=== PATIENT | male | born 1980 | race Caucasian/White ===

== ENCOUNTER 2020-01-03 10:24 | Emergency (ER) | payer SELFPAY ==
[2020-01-03] VITALS (26 sets, daily range): BP systolic 112–135; BP diastolic 68–80; PULSE 57–98; RESP 10–26; TEMP 36.8–36.9; O2SAT 97–100
--- NOTE | 2020-01-03 10:30 | DI.CT_ITS ---
EXAM: CT CHEST/ABD/PEL W TECHNIQUE: CT examination of the chest, abdomen, and pelvis was performed with bolus infusion of 100 cc of Omnipaque 350. COMPARISON: No exams were available for comparison FINDINGS: There is no evidence of a thoracic vascular injury. The lungs are clear. No pneumothorax or pleural effusion. No mediastinal hematoma. No adenopathy in the chest. Tracheobronchial tree appears intact. The liver, spleen, and pancreas appear dorian except for incidental apparent right lobe hepatic katie ioma with characteristic peripheral nodular enhancement. Gallbladder and bile ducts are normal. Adrenals appear normal. There are nonobstructing right renal calculi. No evidence of renal injury. Renal cortex enhances symmetrically bilaterally.. No evidence of urinary tract injury or obstructio n. No abdominal or pelvic vascular injury seen. No abdominal or pelvic adenopathy. No significant abdomi nal wall hernia or hematoma. No evidence of bowel injury. IMPRESSION: No evidence of acute injury of the chest, abdomen, or pelvis. RADIATION DOSE DELIVERED: 1,234.08mGy.cm Total DLP DATA REPOSITORY: All CT scans at this facility are submitted to the National Radiology Data Registry (NRDR) Dose Index Registry (DIR) with the [employer] (ACR). RADIATION OPTIMIZATION: All CT scans at this facility use at least one of these dose optimization te chniques: automated exposure control; mA and/or kV adjustment per patient size (includes targeted exa ms where dose is matched to clinical indication); or iterative reconstruction.
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
[2020-01-03] MEDS: HYDROmorphone 2 MG/ML VIAL 1 MG IVP ×2 (10:39→11:30)
[2020-01-03 10:49] LABS: Abs Immature Grans 0.02 k/cumm (0.0-0.09); Absolute Basophil Count 0.03 k/cumm (0.0-0.2); Absolute Eosinophil Count 0.65 k/cumm (0.0-0.7); Absolute Monocyte Count 0.68 k/cumm (0.11-0.7); Absolute Neutrophil Count 5.97 k/cumm (1.2-6.7); Basophils % 0.3; Eosinophils % 6.9; HCT 42.4 % (40.0-50.0); HGB 13.9 g/dL (13.5-17.5); Immature Grans % 0.2 %; Lymphocytes % 22.2; Mean Corp. HGB Concentration 32.8 g/dL (32.0-36.0); Mean Corpuscular Hemoglobin 29.4 pg (27.0-33.0); Mean Corpuscular Volume 89.6 fL (80-95); Mean Platelet Volume 9.3 fL (8.0-11.0); Monocytes % 7.2; Neutrophils % 63.2; Platelet Count 403 x1000/uL (130-400); RBC 4.73 m/cumm (4.50-6.00); RBC Distribution Width 13.3 % (11.8-14.1); White Blood Cell Count 9.45 k/cumm (4.4-10.8)
[2020-01-03 11:05] LABS: INR 1.1 (0.9-1.1); PTT Activated 25.7 sec (21.0-31.4); Prothrombin Time 10.6 sec (9.3-11.0)
[2020-01-03 11:13] LABS: ALT 25 U/L (16-63); AST 18 U/L (15-37); Albumin 3.7 g/dL (3.4-5.0); Alkaline Phosphatase 94 U/L (46-116); Anion Gap 7.7 mmol/L (3-11); BUN 10 mg/dL (7-18); Bilirubin, Total 0.2 mg/dL (0.2-1.0); CO2 26.3 mmol/L (21.0-32.0); CREATININE 1.06 mg/dL (0.70-1.30); Calcium 9.5 mg/dL (8.5-10.1); Chloride 106 mmol/L (98-107); Glucose 99 mg/dL (74-106); Lipase 46 U/L (73-393); Potassium 4.4 mmol/L (3.5-5.1); Sodium 140 mmol/L (136-145); Total Protein 7.8 g/dL (6.4-8.2); Troponin I < 0.05 ng/mL (<0.06)
[2020-01-03 11:21] LABS: ETHANOL BLOOD < 3.0 mg/dL (<3)
[2020-01-03] MEDS: Omnipaque 350 MG/ML 100 ML BTL IJ (11:28)
[2020-01-03] MEDS: Normal Saline 1,000 ML 1000 ML IV (11:50)
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
[2020-01-03] MEDS: Lidocaine/Epinephri/Tetracaine Topical Gel 3 ML (12:35)
[2020-01-03] MEDS: Normal Saline Flush 10 ML SYR IVP (12:36)
[2020-01-03] MEDS: Bacitracin 1 PACKET (13:49)
[2020-01-03] MEDS: Bacitracin 30 GM TUBE (13:49)
[2020-01-03] MEDS: Cephalexin 500 MG CAP, 4 CAPS/BTL PO (13:49)
== END 2020-01-03 13:49 | disposition home or self-care (01) ==
PROVIDERS: Emergency Provider Student in an Organized Health Care Education/Training Program
DX: S51.012A Laceration without foreign body of left elbow, initial encounter (principal); S61.212A Laceration without foreign body of right middle finger without damage to nail, initial encounter; S01.111A Laceration without foreign body of right eyelid and periocular area, initial encounter; S80.12XA Contusion of left lower leg, initial encounter; S00.01XA Abrasion of scalp, initial encounter; S40.811A Abrasion of right upper arm, initial encounter; S50.811A Abrasion of right forearm, initial encounter; V47.5XXA Car driver injured in collision with fixed or stationary object in traffic accident, initial encounter; M25.552 Pain in left hip; M54.6 Pain in thoracic spine
CPT/HCPCS: 36415; 74177; 80053; 80307; 83690; 90471; 93005; 96361; 96374; 96375; 96376; 99285; 70450; 71260; 72125; 73080; 73502; 73590; 80320; 81003; 83735; 84484; 85025; 85610; 85730; 93010; J3490

== ENCOUNTER 2021-05-17 14:37 | Emergency (ER) | payer SELFPAY ==
[2021-05-17] VITALS (29 sets, daily range): BP systolic 131–161; BP diastolic 61–148; PULSE 71–106; RESP 12–36; TEMP 36.7–37; O2SAT 91–100
--- NOTE | 2021-05-17 14:15 | RT.EKG_ITS ---
APPROVED REPORT Exam: Resting ECG Reason for Exam: [facility] Patient Location: E HR:102 bpm ECG Measurements Heart Rate 102 AXIS PA 166 P 73 QRSd 92 QRS 93 QT 346 T 52 QTc 453 Conclusion Sinus tachycardia...rate> 99 significant motion artifact, no obvious st t wave ischemic findings
--- NOTE | 2021-05-17 14:41 | ED.GENADUL_ITS ---
Discharge Plan Disposition Patient Disposition: HOME Condition: Stable Discharge Details Clinical Impression: Cocaine use, Opiate withdrawal Primary Care Provider: Unknown,Unknown ED Provider: Marquita Jeffery Home Meds and New Rx's Prescriptions: New hydroxyzine pamoate [Vistaril] 25 mg capsule 25 mg PO BID PRN (Reason: agitation) 5 Days Qty: 10 RF: 0 ondansetron 4 mg tablet,disintegrating 4 mg PO Q8H PRN5 Days Qty: 15 RF: 0 Discharge Instructions Instructions: Cocaine Abuse (ED), Opioid Withdrawal (ED) Additional Instructions: Please follow up with [facility] on Tuesday to begin opioid withdrawal treatment. Use medications for withdrawal symptoms as prescribed. Please take Tylenol or Ibuprofen with food every 4-6 hours as needed for pain and swelling. Follow up with primary care provider in 3-5 days. Return to ED sooner if any worsening or concerns. Increase oral fluids. Referrals: Monisha Doll [NURSE PRACTITIONER] - 5 days (Primary care establishment) Medical Decision Making <XIMENA Weaver - Last Filed: 05/17/21 17:31> Patient is a 40-year-old male brought in via EMS with concern for opiate withdrawal. Patient reports that he has been addicted to Percocet for the last 10 years. He states that he wants to be clean and is tired of being addicted and stop his habit approximately 14 hours ago. Reports that typically he snorts his Percocet and typically take around 30 mg every few hours. States that everything hurts. Has frequent shaking episodes during which time he still conversant and then suddenly go slack. EMS states he has been easy to arouse. Patient denies any trauma. Denies any alcohol or other illicit drug use. He states that he stopped using purposefully, wants to get help. Denies MANRIQUEZ, focal weakness, SOB, SI, HI. No IVDU. On exam, patient demonstrates very unusual movements that appear to be controlled. He is twitching frequently but can stop to talk, stop for IV placement, able to stand unassisted. He has no focal deficits that I note. His responses wax/wane. He seems guarded in regards to personal information (ie. address, phone #...). Otherwise, his repsonses are appropriate. He does not appear typical for withdrawal. VS signficant for hypertension. He is stable. Appears anxious but controlled. No evidence of trauma. Patient agreeable to talking with cross country and track and field coach, wants ot seek care for his narcotic abuse. He appears stable at this time. I am concerned that there is another factor at play, in particular substance use that is not revealed. With his percocet abuse, also considered elevated APAP levels, liver dysunction. Patient is not jaundiced, I do not note hepatomegally. No meningismus, rash to suggest meningitis or LABORER MINE infection. I do not see need for imaging at this time. Again, denies trauma or pain. Will give Ativan for his withdrawal symptoms and anxiety. Patient evaluated by cross country and track and field coach. She is concerned that he is not interested in recovery but is willing to work with him and he with her. She reports that patient stopped using percocet b/c of availability not want to stop. She discussed MAT therapy but patient states that he is only interested in Methadone and not Suboxone. Labs reviewed. UDS pending. ETOH negative. No signficant abnormalities. Of note, normal kidney and liver function. APAP level normal. Lactate elevated. He is receiving hydration. Will hydrate and recheck. \ At the end of my shift, care tranistioned to Marquita Jeffery NP with reassessment and repeat lactate pending. <Marquita Jeffery - Last Filed: 05/17/21 20:59> Care assumed from provider (Yvonne Leal) Please see their initial HPI, PE, and documentation. Discussed patient details and case and pending workup and disposition. Patient is hemodynamically stable, awaiting additional liter LR, repeat lactate and UDS at this time. Expected disposition discharge with follow-up care in the [facility] for opiate dependence disorder. At the time of my initial examination the patient is mildly sedated status post Ativan administration. He is twitchy, awakens easily to verbal stimuli, vital signs are stable. Patient is receiving liter normal saline and a liter of LR. Urine obtained by staff internist office based only, output 225 cc, Cows score 14 at this time. Tylenol 500 mg PO ordered. Will consider discharge with Hydroxyzine prn agitation, Zofran prn N/V. UDS positive for cocaine. Patient on the phone with a friend checked who states that he can come and pick him up. Patient to be discharged home with follow-up with [facility]. Patient given symptoms abuse resources and phone number for [facility] clinic instructed to call in the morning. This text was generated using [employer] dictation system, please disregard any oddities of phrase or misspellings. Patient discharged in hemodynamically stable condition. Patient ambulatory prior to DC. HPI <XIMENA Weaver - Last Filed: 05/17/21 17:31> General Mode of arrival: EMS . Date/Time Provider Initiated Documentation: 05/17/21 14:40 . Limitations to Documentation: no limitations (patient is limited with his answers but is able to answer appropriately) . Information obtained by: patient, EMS and RN notes reviewed . HPI Narrative: Patient presents today, brougth in via EMS, with c/c of opiate withdrawal. He states that he has been abusing percocet for the past 10 years, snorting 30mg every few hours. States that he last used 14 hours ago and is feeling that he is having withdrawal symptoms. Primary concern is that, everything hurts. He denies SI or HI. States that he wants to be clean and this is why he has not used but, cannot feel like this. He reports pain primarily in back and abdomen. Denies SOB, CP. No N/V. Per EMS, patient has been shaking and then will intermittently stop and become briefly quiet. Remains responsive to stimuli. They have not given him any medication. Related Data Home Medications Medication Instructions Recorded Confirmed hydroxyzine pamoate [Vistaril] 25 mg PO BID PRN 5 Days #10 cap 05/17/21 ondansetron 4 mg PO Q8H PRN 5 Days #15 tab 05/17/21 Previous Rx's Medication Instructions Recorded hydroxyzine pamoate [Vistaril] 25 mg PO BID PRN 5 Days #10 cap 05/17/21 ondansetron 4 mg PO Q8H PRN 5 Days #15 tab 05/17/21 Allergies Allergy/AdvReac Type Severity Reaction Status Date / Time No Known Allergies Allergy Unverified 05/17/21 14:52 General Stated Complaint: DrugWithdr/MAT JERAD: 2 Review of Systems <XIMENA Weaver - Last Filed: 05/17/21 17:31> Constitutional Constitutional: Reports as per HPI, Denies chills, Denies fever(s) and Denies headache(s) Eyes Eyes: Denies loss of vision ENT Ears, Nose, Mouth, and Throat: Denies headache(s) Cardiovascular Cardiovascular: Reports as per HPI, Denies chest pain and Denies dyspnea Respiratory Respiratory: Reports as per HPI, Denies cough and Denies dyspnea Musculoskeletal Musculoskeletal: Reports as per HPI and Reports back pain (chronic, reason why he was taking the percocet per patient report) Neurologic Neurologic: Reports as per HPI, Reports abnormal movements, Denies confusion, Denies headache(s), Denies lack of coordination, Denies localized weakness, Denies loss of vision, Denies other visual disturbances and Denies seizure-like activity Psychiatric Psychiatric: Reports anxiety, Denies confusion, Denies homicidal ideation and Denies suicidal ideation PFSH <XIMENA Weaver - Last Filed: 05/17/21 17:31> Social History Smoking/Tobacco Use Status: Current every day Tobacco Type: cigarettes Smoking risk assessment performed?: Yes Alcohol Intake: never Drug use: Never Substance use type: does not use Do you feel safe at home: Yes Do you feel safe in your relationship?: Yes Exam <XIMENA Weaver - Last Filed: 05/17/21 17:31> Const General: cooperative, no acute distress, anxious, disheveled and intoxicated appearing Nutritional Appearance: average body habitus and well nourished Orientation: alert, awake and oriented x3 Limitations: other limitations (unusual intermittent movements that appear purposeful) [facility] Head: normal to inspection, no palpable skull fracture, normocephalic and atraumatic Ears: hearing grossly normal bilaterally Face and sinus: normal facial exam Mouth: oral mucosae normal Teeth and gingiva: poor dentition Throat: posterior oropharynx normal Eyes General: appearance normal, both eyes and all related structures Chest Chest: normal inspection of the chest Resp Effort & Inspection: normal respiratory effort, able to speak in complete sent ences and no respiratory distress Auscultation: clear to auscultation bilaterally Cardio Rate: regular rate Rhythm: regular rhythm Heart Sounds: S1 normal and S2 normal GI Inspection: normal to inspection Palpation: soft and nontender Percussion: normal to percussion Skin General skin exam: no rashes or lesions noted Neuro General: patient alert, patient awake and patient oriented x3 Cranial Nerves: CN's II-XI intact bilaterally Cognition: normal cognition Speech: speech normal Gait: gait abnormal (did not see patient walk) Motor: muscle tone normal throughout, strength 5/5 throughout, no pronator drift and fasciculations (in all extremities but appears purposeful and intermittent. Able to stop) Extrem General: normal to inspection, full ROM, capillary refill normal, no pedal edema, no calf tenderness and abnormal gait (gait not assessed, he is able to stand unassisted) Psych Appearance: grossly normal and well kempt Mental Status: mental status grossly normal Speech and Movement: speech and movement normal Course <XIMENA Weaver - Last Filed: 05/17/21 17:31> Vital Signs Vital signs: Vital Signs Temperature 36.7 C 05/17/21 14:34 Pulse 93 H 05/17/21 14:34 Respiratory Rate 12 05/17/21 14:34 Blood Pressure 150/103 H 05/17/21 14:34 Pulse Oximetry 98 05/17/21 14:34 Temperature 36.7 C 05/17/21 14:34 Temperature Source Temporal Artery Scan 05/17/21 14:34 Pulse 93 H 05/17/21 14:34 Respiratory Rate 12 05/17/21 14:34 Blood Pressure 150/103 H 05/17/21 14:34 Blood Pressure Position Supine 05/17/21 14:34 Pulse Oximetry 98 05/17/21 14:34 Oxygen Delivery Method Room Air 05/17/21 14:34 Oxygen Flow Rate 0 05/17/21 14:34 Sign Out <XIMENA Weaver - Last Filed: 05/17/21 17:31> Sign Out Data: Sign Out Comment: Care transition to Irma Neri NP. Concerned the patient may be withdrawing or currently on illicit substance. His lactate elevated 2.7. Plan to give 2 L of fluids and reassess. Patient was evaluated by cross country and track and field coach and they are also concerned that patient still wants to use and may miss use medications. In particular, the patient had discussed wanting methadone clinic Suboxone. Also reported to cross country and track and field coach that he only stopped using because of access to narcotics not out of want to stop which was his initial report to medical staff here. Patient will need close follow-up, encourage utilization of our clinic. Will have close follow-up with primary care, care management. I am concerned for safety of patient and continued abuse of medications Last updated by Yvonne Trinidad PA at 05/17/21 16:10
[2021-05-17] MEDS: Normal Saline 1,000 ML 1000 ML IV (14:53)
[2021-05-17] MEDS: LORazepam 2 MG/ML VIAL 1 MG IVP ×2 (14:54→16:12)
[2021-05-17 15:00] LABS: Abs Immature Grans 0.03 10^3/uL (0.0-0.06); Absolute Basophil Count 0.08 10^3/uL (0.0-0.2); Absolute Lymphocyte Count 1.73 10^3/uL (1.2-3.4); Absolute Monocyte Count 0.51 10^3/uL (0.1-0.8); Absolute Neutrophil Count 6.37 10^3/uL (1.2-6.7); Basophils % 0.9; Eosinophils % 5.4; HGB 15.3 g/dL (13.5-17.5); Immature Grans % 0.3; Lactate 2.7 mmol/L (0.6-1.4); Lymphocytes % 18.8; MCH 28.9 pg (27.0-33.0); MCHC 32.6 % (32.0-36.0); MCV 88.7 fL (80-95); MPV 9.6 fL (8.0-11.0); Monocytes % 5.5; Neutrophils % 69.1; Nucleated RBC 0 %; Platelet Count 360 10^3/uL (130-400); RDW 12.2 % (11.8-14.1); RDW-SD 39.8 fL; WBC 9.22 10^3/uL (4.4-10.8)
[2021-05-17 15:14] LABS: Creatine Kinase 61 U/L (39-308)
[2021-05-17 15:15] LABS: ALT 30 U/L (16-63); AST 13 U/L (15-37); Albumin 4.2 g/dL (3.4-5.0); Alkaline Phosphatase 104 U/L (46-116); Anion Gap 9.6 mmol/L (3-11); BUN 12 mg/dL (7-18); Bilirubin, Total 0.4 mg/dL (0.2-1.0); CO2 26.4 mmol/L (21.0-32.0); CREATININE 1.2 mg/dL (0.70-1.30); Calcium 9.3 mg/dL (8.5-10.1); Chloride 105 mmol/L (98-107); Glucose 112 mg/dL (74-106); Magnesium 2.1 mg/dL (1.8-2.4); Sodium 141 mmol/L (136-145); Total Protein 8.5 g/dL (6.4-8.2)
[2021-05-17 15:16] LABS: Troponin I < 0.05 ng/mL (<0.06)
--- NOTE | 2021-05-17 15:37 | NUR.NOTE ---
sustainability coach into see patient.
[2021-05-17 15:39] LABS: Salicylate 3.6 mg/dL (<2.8)
[2021-05-17 15:40] LABS: Acetaminophen < 2 ug/mL (10-30)
[2021-05-17 15:59] LABS: ETHANOL BLOOD < 3.0 mg/dL (<10)
[2021-05-17] MEDS: Lactated Ringers 1,000 ML 1000 ML IV (16:45)
[2021-05-17 17:34] LABS: Lactate 1.5 mmol/L (0.6-1.4)
--- NOTE | 2021-05-17 17:41 | NUR.NOTE ---
Patient assisted out of bed to use urinal. Specimen sent to lab.
[2021-05-17 17:46] LABS: Bilirubin Negative (Negative); Blood Negative (Negative); Clarity Clear (Clear); Glucose Negative (Negative); Ketones Negative (Negative); Leukocyte Esterase Negative (Negative); Nitrite Negative (Negative); Specific Gravity 1.015 (1.005-1.025); Urobilinogen 0.2 EU/dL (Up TO 0.2)
[2021-05-17] MEDS: Acetaminophen 500 MG TAB PO (17:48)
[2021-05-17 17:57] LABS: *AMPHETAMINES SCREEN URINE Negative (Negative); *BARBITURATES SCREEN URINE Negative (Negative); *BENZODIAZEPINES SCREEN URINE Negative (Negative); Cannabinoids THC Negative (Negative); Cocaine Screen,Urine Positive (Negative); METHADONE URINE SCREEN Negative (Negative); OPIATES URINE SCREEN Negative (Negative)
[2021-05-17 18:01] LABS: Tricyclic Antidepressants Negative (Negative)
--- NOTE | 2021-05-17 18:35 | NUR.NOTE ---
referral to cm for help setting up [facility] services and needs a pcp
--- NOTE | 2021-05-18 11:27 | CMPROGNOTE_ITS ---
- If Service Date Differs Date of service: 05/18/21 Time of Service: 11:27 Care Management Progress Note CM contacted CODY to determine if pt has been in contact to set up services, as he was instructed to by ED provider. Per [facility], he is currently not enrolled in services. SUJATA reached out to Jose, there was no answer and voicemail box was full. SUJATA sent referral for local PCP, to NEW Doll, at [facility], per T doc schedule.
== END 2021-05-17 18:40 | disposition home or self-care (01) ==
LOC: ER 18:40
PROVIDERS: Physician Assistant; Emergency Provider Registered Nurse Emergency
DX: F11.23 Opioid dependence with withdrawal (principal); F14.10 Cocaine abuse, uncomplicated; R25.3 Fasciculation
CPT/HCPCS: 36415; 80053; 80307; 82550; 82962; 93005; 96361; 96374; 96376; 99285; 80320; 80329; 81003; 83605; 83735; 84484; 85025; 93010; 99284; J2060

== ENCOUNTER 2023-06-20 21:23 | Emergency (ER) | payer SELFPAY ==
[2023-06-20 21:20] VITALS: BP 136/83; PULSE 76; RESP 18; TEMP 36.7; O2SAT 96
[2023-06-20] MEDS: Ibuprofen 800 MG TAB PO (21:31)
[2023-06-20] MEDS: Acetaminophen 500 MG TAB 1000 MG PO (21:31)
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
--- NOTE | 2023-06-20 22:41 | DI.RAD_ITS ---
Exam(s) XR WRIST RT COMPLETE EXAM: XR WRIST RT COMPLETE CLINICAL HISTORY: post handcuff wrist pain. TECHNIQUE: 2D digital imaging was performed of the right wrist. Three views were obtained. PA, lat eral and oblique views were obtained. COMPARISON: No exams were available for comparison FINDINGS: BONES: No acute fracture is present. No bony destructive lesion is seen. JOINTS: The carpal bones are normally aligned. SOFT TISSUE: Normal. IMPRESSION: Unremarkable radiographs of the right wrist. DATA REPOSITORY: RADIATION DOSE DELIVERED:
--- NOTE | 2023-06-20 22:42 | DI.RAD_ITS ---
Exam(s) XR CHEST 2V PA LATERAL EXAM: XR CHEST 2V PA LATERAL CLINICAL HISTORY: cough, ronchi, eval for pneumonia TECHNIQUE: 2D digital imaging was performed of the chest. Three images were obtained. PA and later al views were obtained. COMPARISON: No exams were available for comparison FINDINGS: MEDIASTINUM: Normal. HEART: Normal. PULMONARY VASCULATURE: Normal. LUNGS: Clear. PLEURAL SPACE: No pleural effusion or pneumothorax. BONE:Within normal limits for the patient's age. OTHER FINDINGS:Normal. IMPRESSION: No acute pulmonary findings. DATA REPOSITORY: RADIATION DOSE DELIVERED:
--- NOTE | 2023-06-20 22:42 | DI.RAD_ITS ---
Exam(s) XR WRIST LT COMPLETE EXAM: XR WRIST LT COMPLETE CLINICAL HISTORY: post handcuff wrist pain. TECHNIQUE: 2D digital imaging was performed of the left wrist. Three images were obtained. PA, obl ique and lateral views were obtained. COMPARISON: No exams were available for comparison FINDINGS: BONES: No acute fracture is present. No bony destructive lesion is seen. JOINTS: The carpal bones are normally aligned. SOFT TISSUE: Normal. IMPRESSION: Unremarkable radiographs of the left wrist. DATA REPOSITORY: RADIATION DOSE DELIVERED:
--- NOTE | 2023-06-20 23:12 | DI.VRAD_ITS ---
PROCEDURE INFORMATION: Exam: XR Left Wrist Exam date and time: 06/20/2023 9:43 PM Age: 42 years old Clinical indication: Bilateral; Patient HX: Post handcuff wrist pain TECHNIQUE: Imaging protocol: Radiologic exam of the left wrist. Views: 3 or more views. COMPARISON: No relevant prior studies available. FINDINGS: Bones/joints: Normal. Soft tissues: Normal. IMPRESSION: No acute findings. Dictated and Authenticated by: Francisco Vides MD. Ordering:LISY Dominguez MD
--- NOTE | 2023-06-20 23:14 | DI.VRAD_ITS ---
PROCEDURE INFORMATION: Exam: XR Right Wrist Exam date and time: 06/20/2023 9:46 PM Age: 42 years old Clinical indication: Bilateral; Patient HX: Post handcuff wrist pain TECHNIQUE: Imaging protocol: Radiologic exam of the right wrist. Views: 3 or more views. COMPARISON: CR XR ELBOW RT COMPLETE 01/03/2020 11:01 AM FINDINGS: Bones/joints: Normal. Soft tissues: Normal. IMPRESSION: No acute findings. Dictated and Authenticated by: Francisco Vides MD. Ordering:LISY Dominguez MD
--- NOTE | 2023-06-20 23:16 | DI.VRAD_ITS ---
PROCEDURE INFORMATION: Exam: XR Chest Exam date and time: 06/20/2023 9:40 PM Age: 42 years old Clinical indication: Patient HX: Cough, ronchi, eval for pneumonia TECHNIQUE: Imaging protocol: Radiologic exam of the chest. Views: 2 views. COMPARISON: CT CHEST/ABD/PEL W 01/03/2020 10:50 AM FINDINGS: Lungs: Unremarkable. No consolidation. Pleural spaces: Unremarkable. No pleural effusion. No pneumothorax. Heart/Mediastinum: Unremarkable. No cardiomegaly. Bones/joints: Unremarkable. IMPRESSION: No acute findings. Dictated and Authenticated by: Francisco Vides MD. Ordering:LISY Dominguez MD
[2023-06-20 23:20] VITALS: BP 147/72; PULSE 64; RESP 18; O2SAT 98
--- NOTE | 2023-06-21 09:40 | NUR.NOTE ---
Accessed Pt chart to look at HIPPA.
== END 2023-06-20 23:21 | disposition home or self-care (01) ==
PROVIDERS: Emergency Provider Student in an Organized Health Care Education/Training Program
DX: M25.532 Pain in left wrist (principal); M25.531 Pain in right wrist; R07.89 Other chest pain; R05.9 Cough, unspecified; F17.210 Nicotine dependence, cigarettes, uncomplicated
CPT/HCPCS: 99283; 71046; 73110